=== PATIENT | male | born 1960 | race African-American/Black ===

== ENCOUNTER → 2016-12-07 09:52 | Outpatient (CLI) | payer OTHER | END | disposition home or self-care (01) | LOC: AMB 09:52 | DX: Z04.1 Encounter for examination and observation following transport accident (principal) ==

== ENCOUNTER 2019-12-22 11:14 | Outpatient (CLI) | payer OTHER | END 2019-12-22 19:39 | disposition home or self-care (01) | LOC: RAD 11:14 | DX: M25.532 Pain in left wrist (principal) ==